=== PATIENT | female | born 1990 | race African-American/Black ===

== ENCOUNTER 2016-10-09 15:40 | Emergency (ER) | payer MEDICAID ==
[~2016-10-09] VITALS: Ht 177.8 cm; Wt 85.0 kg
[~2016-10-09 15:40] MED LIST: ASPI325T2 PO; GABA-531 PO; HYDR-523 PO; LEVO500T15 PO; Metoprolol Tartrate PO
[2016-10-09] MEDS ORDERED: KETOROLAC 30MG/ML VIAL IM ONE (16:30)
[2016-10-09 16:32] VITALS: BP 120/67
== END 2016-10-09 16:38 | disposition home or self-care (01) ==
LOC: ER 16:37
DX: H66.92 Otitis media, unspecified, left ear (principal)
CPT/HCPCS: 81025; 96372; 99283; J1885

== ENCOUNTER 2017-01-29 19:40 | Emergency (ER) | payer MEDICAID ==
[~2017-01-29] VITALS: Ht 177.8 cm; Wt 94.0 kg
[~2017-01-29 19:40] MED LIST changes: +ASPI-986 PO; -ASPI325T2 PO; -LEVO500T15 PO; +LEVO500T2 PO
[2017-01-29] MEDS ORDERED: KETOROLAC 30MG/ML VIAL IV STA (21:46)
[2017-01-29] MEDS ORDERED: METOCLOPRAMIDE HCL 10MG/2ML VIAL IV ONE (22:00)
[2017-01-29] MEDS ORDERED: SODIUM CHLORIDE 0.9% 1,000 ML IV ONE (23:27)
[2017-01-29] MEDS ORDERED: MAGNESIUM 2 G PREMIX 50 ML IV ONE (23:30)
[2017-01-30 00:10] VITALS: BP 131/90
== END 2017-01-30 00:10 | disposition home or self-care (01) ==
LOC: ER 21:52
DX: R51 Headache (principal); R07.89 Other chest pain; R10.9 Unspecified abdominal pain; R03.0 Elevated blood-pressure reading, without diagnosis of hypertension; Z18.89 Other specified retained foreign body fragments; Z87.828 Personal history of other (healed) physical injury and trauma; Z79.82 Long term (current) use of aspirin; Z79.899 Other long term (current) drug therapy
CPT/HCPCS: 71010; 81025; 93005; 96374; 96375; 99284; J1885; J2765; Z7610; J3475; J7030

== ENCOUNTER 2017-05-09 17:19 | Emergency (ER) | payer MEDICAID ==
[~2017-05-09] VITALS: Ht 177.8 cm; Wt 92.0 kg
[2017-05-09 17:52] VITALS: BP 139/75
== END 2017-05-09 20:58 | disposition home or self-care (01) ==
LOC: ER 18:31
DX: H92.02 Otalgia, left ear (principal); Z79.82 Long term (current) use of aspirin; Z98.890 Other specified postprocedural states
CPT/HCPCS: 81025; 99282

== ENCOUNTER 2017-06-27 11:58 | Emergency (ER) | payer MEDICAID ==
[~2017-06-27] VITALS: Ht 177.8 cm; Wt 99.0 kg
[2017-06-27 14:09] LABS: BASOPHILS % 0.5 % (0.0-2.0); EOSINOPHILS % 2.1 % (0.0-5.0); HEMATOCRIT. 41.1 % (36.0-48.0); HEMOGLOBIN. 13.4 g/dL (12.0-16.0); LYMPHOCYTES % 23.6 % (20.0-50.0); MEAN CORPUSCULAR HEMOGLOBIN 26.6 pg (28.0-32.0); MEAN CORPUSCULAR VOLUME 81.5 fL (81.0-99.0); MEAN PLATELET VOLUME 9.5 fl (7.4-10.4); MONOCYTES % 7.4 % (2.0-8.0); NEUTROPHILS % 66.4 % (40.0-76.0); PLATELET 226 x1000/uL (130-400); RED BLOOD CELL COUNT 5.05 mill/uL (4.2-5.4); RED CELL DISTRIBUTION WIDTH 15.6 % (11.6-14.6)
[2017-06-27 14:23] LABS: CHLORIDE 108 mEq/L (98-107)
[2017-06-27 14:46] LABS: CLARITY URINE TURBID (CLEAR); COLOR URINE YELLOW (YELLOW); KETONES URINE TRACE (NEGATIVE); LEUKOCYTE ESTERASE URINE 3+ (NEGATIVE); NITRITE URINE NEGATIVE (NEGATIVE); OCCULT BLOOD URINE 2+ (NEGATIVE); PH URINE 6.5 (4.5-8.0); PROTEIN URINE 2+ (NEGATIVE); SPECIFIC GRAVITY URINE 1.025 (1.005-1.030)
[2017-06-27 20:00] VITALS: BP 114/78
== END 2017-06-27 20:17 | disposition home or self-care (01) ==
LOC: ER 14:31
DX: N39.0 Urinary tract infection, site not specified (principal); Z79.82 Long term (current) use of aspirin
CPT/HCPCS: 36415; 80048; 81001; 81025; 87186; 99284

== ENCOUNTER 2018-02-13 10:04 | Emergency (ER) | payer MEDICAID ==
[~2018-02-13] VITALS: Ht 180.3 cm; Wt 93.0 kg
[2018-02-13] MEDS ORDERED: IBUPROFEN 800MG TABLET PO ONE (11:45)
[2018-02-13 12:38] LABS: BASOPHILS % 0.8 % (0.0-2.0); EOSINOPHILS % 1.8 % (0.0-5.0); HEMATOCRIT. 39.1 % (36.0-48.0); HEMOGLOBIN. 12.9 g/dL (12.0-16.0); LYMPHOCYTES % 21.2 % (20.0-50.0); MEAN CORPUSCULAR HEMOGLOBIN 27.4 pg (28.0-32.0); MEAN CORPUSCULAR VOLUME 83.4 fL (81.0-99.0); MEAN PLATELET VOLUME 10.2 fl (7.4-10.4); NEUTROPHILS % 70.2 % (40.0-76.0); PLATELET 228 x1000/uL (130-400); RED BLOOD CELL COUNT 4.69 mill/uL (4.2-5.4); RED CELL DISTRIBUTION WIDTH 15.1 % (11.6-14.6)
[2018-02-13 12:41] LABS: CHLORIDE 108 mEq/L (98-107)
[2018-02-13 13:09] LABS: HCG SCREEN NEGATIVE
[2018-02-13 14:01] LABS: CLARITY URINE CLOUDY (CLEAR); COLOR URINE YELLOW (YELLOW); KETONES URINE NEGATIVE (NEGATIVE); LEUKOCYTE ESTERASE URINE TRACE (NEGATIVE); NITRITE URINE NEGATIVE (NEGATIVE); OCCULT BLOOD URINE NEGATIVE (NEGATIVE); PROTEIN URINE NEGATIVE (NEGATIVE)
[2018-02-13 14:25] VITALS: BP 132/81
== END 2018-02-13 14:34 | disposition home or self-care (01) ==
LOC: ER 10:04
DX: M54.16 Radiculopathy, lumbar region (principal); N39.0 Urinary tract infection, site not specified
CPT/HCPCS: 36415; 74176; 80053; 81003; 81025; 83690; 84703; 85025; 99285

== ENCOUNTER 2019-04-12 07:15 | Emergency (ER) | payer MEDICAID ==
[~2019-04-12] VITALS: Ht 177.8 cm; Wt 97.0 kg
[2019-04-12] MEDS ORDERED: KETOROLAC 30MG/ML VIAL IV STA (07:59)
[2019-04-12 08:28] LABS: BASOPHILS % 0.6 % (0.0-2.0); EOSINOPHILS % 2.3 % (0.0-5.0); HEMATOCRIT. 36.6 % (36.0-48.0); HEMOGLOBIN. 12.1 g/dL (12.0-16.0); MEAN CORPUSCULAR HEMOGLOBIN 27.1 pg (28.0-32.0); MEAN CORPUSCULAR VOLUME 81.9 fL (81.0-99.0); MEAN PLATELET VOLUME 10.1 fl (7.4-10.4); MONOCYTES % 5.5 % (2.0-8.0); NEUTROPHILS % 69.6 % (40.0-76.0); PLATELET 227 x1000/uL (130-400); RED BLOOD CELL COUNT 4.47 mill/uL (4.2-5.4); RED CELL DISTRIBUTION WIDTH 15.4 % (11.6-14.6)
[2019-04-12 08:34] LABS: CHLORIDE 109 mEq/L (98-107)
[2019-04-12 08:37] LABS: CLARITY URINE CLOUDY (CLEAR); COLOR URINE YELLOW (YELLOW); KETONES URINE NEGATIVE (NEGATIVE); LEUKOCYTE ESTERASE URINE 1+ (NEGATIVE); NITRITE URINE NEGATIVE (NEGATIVE); OCCULT BLOOD URINE NEGATIVE (NEGATIVE); PH URINE 6.5 (4.5-8.0); PROTEIN URINE NEGATIVE (NEGATIVE); SPECIFIC GRAVITY URINE 1.017 (1.005-1.030)
[2019-04-12 09:00] LABS: UCG SCREEN NEGATIVE
[2019-04-12 10:14] LABS: HCG SCREEN NEGATIVE
[2019-04-12] MEDS ORDERED: IOHEXOL-350 100 ML BOTTLE ONE (10:44)
[2019-04-12 12:00] VITALS: BP 97/56
== END 2019-04-12 12:27 | disposition home or self-care (01) ==
LOC: ER 07:15
DX: R07.89 Other chest pain (principal); E11.9 Type 2 diabetes mellitus without complications; Z87.440 Personal history of urinary (tract) infections; Z87.828 Personal history of other (healed) physical injury and trauma
CPT/HCPCS: 36415; 71045; 71275; 80053; 81003; 81025; 83880; 84132; 84703; 85025; 85379; 93005; 99284; J1885; Q9967

== ENCOUNTER 2021-08-15 15:25 | Emergency (ER) | payer MEDICAID ==
[~2021-08-15] VITALS: Ht 177.8 cm; Wt 92.0 kg
[~2021-08-15 15:25] MED LIST changes: +ALBU6.7H9 INH; +AMOX-424 MT; -GABA-531 PO; +GABA-532 PO; +GUAI-741 MT
[2021-08-15 18:23] LABS: CLARITY URINE CLOUDY (CLEAR); COLOR URINE YELLOW (YELLOW); KETONES URINE TRACE (NEGATIVE); LEUKOCYTE ESTERASE URINE 1+ (NEGATIVE); NITRITE URINE NEGATIVE (NEGATIVE); OCCULT BLOOD URINE NEGATIVE (NEGATIVE); PROTEIN URINE TRACE (NEGATIVE); SPECIFIC GRAVITY URINE 1.026 (1.005-1.030)
[2021-08-15] MEDS ORDERED: KETOROLAC 60MG/2ML VIAL IM ONE (19:15)
[2021-08-15 20:02] VITALS: BP 154/85
[2021-08-15 20:51] LABS: BASOPHILS % 0.8 % (0.0-2.0); HEMATOCRIT. 41.3 % (36.0-48.0); LYMPHOCYTES % 24.1 % (20.0-50.0); MEAN CORPUSCULAR HEMOGLOBIN 27.3 pg (28.0-32.0); MEAN CORPUSCULAR VOLUME 80.8 fL (81.0-99.0); MEAN PLATELET VOLUME 9.6 fl (7.4-10.4); MONOCYTES % 7.4 % (2.0-8.0); NEUTROPHILS % 63.7 % (40.0-76.0); PLATELET 237 x1000/uL (130-400); RED BLOOD CELL COUNT 5.11 mill/uL (4.2-5.4)
[2021-08-15 20:53] LABS: CHLORIDE 110 mEq/L (98-107)
[2021-08-15 21:04] LABS: B-HCG QUANTITATIVE < 1 mIU/mL (<3)
[2021-08-15] MEDS ORDERED: CIPR-263 MT (21:26)
== END 2021-08-15 22:05 | disposition home or self-care (01) ==
LOC: ER 15:25
DX: N10 Acute pyelonephritis (principal); Z87.828 Personal history of other (healed) physical injury and trauma
CPT/HCPCS: 36415; 76770; 80053; 81003; 81025; 83690; 84702; 85025; 96372; 99284; J1885

== ENCOUNTER 2022-04-18 00:18 | Emergency (ER) | payer MEDICAID ==
[~2022-04-18] VITALS: Ht 177.8 cm; Wt 94.0 kg
[~2022-04-18 00:18] MED LIST changes: +ALBU6.7H3 INH; -ALBU6.7H9 INH; +CIPR-263 MT
[2022-04-18] MEDS ORDERED: CETI-106 MT (05:19)
[2022-04-18 05:45] VITALS: BP 119/67
== END 2022-04-18 05:50 | disposition home or self-care (01) ==
LOC: ER 00:18
DX: J06.9 Acute upper respiratory infection, unspecified (principal); Z98.890 Other specified postprocedural states
CPT/HCPCS: 71046; 99283

== ENCOUNTER 2022-05-07 10:16 | Inpatient (IN) | payer MEDICAID ==
[~2022-05-07] VITALS: Ht 177.8 cm; Wt 119.3 kg
[~2022-05-07 10:16] MED LIST changes: +CETI-106 MT
[2022-05-07] MEDS ORDERED: ACETAMINOPHEN 325MG TABLET PO STA ×2 (13:21)
[2022-05-07] MEDS ORDERED: VANCOMYCIN 1G PREMIX 200 ML IV ONE (13:30)
[2022-05-07] MEDS ORDERED: PIPERACILLIN/TAZ 3.375G PREMIX 50 ML IV ONE (13:30)
[2022-05-07 14:01] LABS: BASOPHILS % 0.4 % (0.0-2.0); HEMATOCRIT. 39.6 % (36.0-48.0); HEMOGLOBIN. 12.9 g/dL (12.0-16.0); LYMPHOCYTES % 12.8 % (20.0-50.0); MEAN CORPUSCULAR HEMOGLOBIN 26.6 pg (28.0-32.0); MEAN CORPUSCULAR VOLUME 81.6 fL (81.0-99.0); MEAN PLATELET VOLUME 10.2 fl (7.4-10.4); NEUTROPHILS % 72.8 % (40.0-76.0); PLATELET 252 x1000/uL (130-400); RED BLOOD CELL COUNT 4.86 mill/uL (4.2-5.4); RED CELL DISTRIBUTION WIDTH 16.1 % (11.6-14.6)
[2022-05-07 14:08] LABS: CHLORIDE 101 mEq/L (98-107); INR 1.2; PROTHROMBIN TIME 12.7 sec (9.6-11.0)
[2022-05-07 14:11] LABS: CLARITY URINE CLEAR (CLEAR); COLOR URINE YELLOW (YELLOW); KETONES URINE NEGATIVE (NEGATIVE); LEUKOCYTE ESTERASE URINE NEGATIVE (NEGATIVE); NITRITE URINE NEGATIVE (NEGATIVE); OCCULT BLOOD URINE NEGATIVE (NEGATIVE); PH URINE 5.5 (4.5-8.0); PROTEIN URINE NEGATIVE (NEGATIVE); SPECIFIC GRAVITY URINE 1.031 (1.005-1.030); UROBILINOGEN URINE 0.2 E.U./dL (0.2-1.0)
[2022-05-07 14:18] LABS: CREATINE KINASE 131 IU/L (26-192)
[2022-05-07 14:21] LABS: HCG SCREEN NEGATIVE
[2022-05-07] MEDS ORDERED: DIPHENHYDRAMINE 50MG/ML VIAL IV ONE (15:30)
[2022-05-07] MEDS ORDERED: METHYLPREDNISOLONE SOD SUCC 125 MG/2 ML VIAL IV ONE (15:30)
[2022-05-07] MEDS ORDERED: SODIUM CHLORIDE 0.9% 1000ML BAG (SEPSIS BOLUS) IV ONE (15:30)
[2022-05-07] MEDS ORDERED: ONDANSETRON HCL 4MG/2ML INJ IV ONE (15:30)
[2022-05-07] MEDS ORDERED: CLONIDINE 0.1MG TABLET PO PRN (16:45)
[2022-05-07] MEDS ORDERED: MAGNESIUM/ALUMINUM HYDROXIDE/SIMETHICONE 30ML UDC PO PRN (16:45)
[2022-05-07] MEDS ORDERED: DOCUSATE SODIUM 100MG CAPSULE PO PRN (16:45)
[2022-05-07] MEDS ORDERED: ONDANSETRON HCL 4MG/2ML INJ IV PRN (16:45)
[2022-05-07] MEDS ORDERED: ACETAMINOPHEN 325MG TABLET PO PRN (16:45)
[2022-05-07] MEDS ORDERED: ENOXAPARIN 40MG/0.4ML SYR SUBCUT SCH (18:00)
[2022-05-08 02:37] VITALS: BP 116/72
[2022-05-08 04:00] VITALS: BP 99/59
[2022-05-08 05:39] LABS: BASOPHILS % 0.1 % (0.0-2.0); HEMATOCRIT. 36.5 % (36.0-48.0); HEMOGLOBIN. 12.1 g/dL (12.0-16.0); LYMPHOCYTES % 11.6 % (20.0-50.0); MEAN CORPUSCULAR VOLUME 81.4 fL (81.0-99.0); NEUTROPHILS % 86.3 % (40.0-76.0); PLATELET 237 x1000/uL (130-400); RED BLOOD CELL COUNT 4.48 mill/uL (4.2-5.4)
[2022-05-08 06:51] LABS: CHLORIDE 102 mEq/L (98-107)
[2022-05-08] MEDS: PANTOPRAZOLE 40MG DR TABLET PO SCH ×2 (07:10→20:04)
[2022-05-08 07:13] LABS: HDL CHOLESTEROL 29 mg/dL (40-59); LDL CHOLESTEROL 41 mg/dL (5-100); T4 FREE 1.22 ng/dL (0.76-1.46)
[2022-05-08 08:00] VITALS: BP 100/55
[2022-05-08 12:00] VITALS: BP 138/88
[2022-05-08 12:05] LABS: *AMPHETAMINES SCREEN URINE NEGATIVE (NEGATIVE); *BARBITURATES SCREEN URINE NEGATIVE (NEGATIVE); *BENZODIAZEPINES SCREEN URINE NEGATIVE (NEGATIVE); *COCAINE SCREEN URINE NEGATIVE (NEGATIVE); CANNABINOID URINE SCREEN NEGATIVE (NEGATIVE); METHADONE URINE SCREEN NEGATIVE (NEGATIVE); PHENCYCLIDINE URINE SCREEN NEGATIVE (NEGATIVE)
[2022-05-08 12:14] LABS: OPIATES URINE SCREEN PRESUMTIVE POSITIVE (NEGATIVE)
[2022-05-08 16:00] VITALS: BP 137/84
[2022-05-08] MEDS: ENOXAPARIN 30MG/0.3ML SYR SUBCUT SCH (18:30)
[2022-05-08 20:00] VITALS: BP 113/68
[2022-05-08] MEDS: ACETAMINOPHEN 325MG TABLET PO PRN (20:04)
[2022-05-08] MEDS: GUAIFENESIN 200MG/10ML SUGAR FREE UDC PO PRN (20:04)
[2022-05-09] VITALS: BP_SYST 109; BP_SYST 119; BP_DIAS 60; BP_DIAS 65
[2022-05-09 03:37] VITALS: BP 98/58
[2022-05-09] MEDS: PANTOPRAZOLE 40MG DR TABLET PO SCH (07:10)
[2022-05-09 08:00] VITALS: BP 105/58
[2022-05-09] MEDS: ENOXAPARIN 30MG/0.3ML SYR SUBCUT SCH (09:00)
[2022-05-09] MEDS: GUAIFENESIN 200MG/10ML SUGAR FREE UDC PO PRN ×2 (10:41→15:16)
[2022-05-09] MEDS: ACETAMINOPHEN 325MG TABLET PO PRN ×2 (10:41→11:41)
[2022-05-09 12:00] VITALS: BP 125/68
[2022-05-09 16:00] VITALS: BP 104/68
[2022-05-09 17:51] VITALS: BP 105/68
[2022-05-09] MEDS ORDERED: AMOXICILLIN/POTASSIUM CLAVULANATE 500/125MG TAB PO SCH (18:00)
[2022-05-09] MEDS ORDERED: AMOX1TAB15 MT (18:01)
[2022-05-09] MEDS ORDERED: FAMOTIDINE 20MG TABLET PO SCH (21:00)
[2022-05-09] MEDS ORDERED: FLUTICASONE PROPIONATE 50MCG/SPRAY BOTTLE BOTHNSTRLS SCH (21:00)
== END 2022-05-09 19:10 | disposition home or self-care (01) | DRG 43 ==
LOC: ER 10:19 → 8WST 16:05 → EDBEDREQ 16:11 → EDBEDREQSVC 16:11 → EDBEDREQTM 16:11 → SUPCPDRO 19:38 → ENRESERV 05-08 00:45 → ER 05-08 01:33
PROVIDERS: ADMIT Internal Medicine; ATTEND Internal Medicine
DX: G37.3 Acute transverse myelitis in demyelinating disease of central nervous system (principal); R65.10 Systemic inflammatory response syndrome (SIRS) of non-infectious origin without acute organ dysfunction; E46 Unspecified protein-calorie malnutrition; E87.1 Hypo-osmolality and hyponatremia; M48.07 Spinal stenosis, lumbosacral region; E11.9 Type 2 diabetes mellitus without complications; E66.9 Obesity, unspecified; J32.9 Chronic sinusitis, unspecified; Z20.822 Contact with and (suspected) exposure to COVID-19; Z86.718 Personal history of other venous thrombosis and embolism; Z68.37 Body mass index [BMI] 37.0-37.9, adult
CPT/HCPCS: 36415; 70551; 71045; 72128; 72131; 72146; 72148; 80053; 80061; 80305; 81003; 82550; 83036; 83605; 84145; 84439; 84443; 84703; 85025; 87426; 87804; 93005; 93970; 97162; 99291; C9803; J1200; J1650; J2405; J2543; J2930; J3370; J7030

== ENCOUNTER 2023-08-13 08:40 | Emergency (ER) | payer MEDICAID ==
[~2023-08-13] VITALS: Ht 175.3 cm; Wt 104.0 kg
[~2023-08-13 08:40] MED LIST changes: -ALBU6.7H3 INH; -AMOX-424 MT; +AMOX1TAB15 MT; -ASPI-986 PO; -CETI-106 MT; -CIPR-263 MT; -GABA-532 PO; -GUAI-741 MT; -HYDR-523 PO; -LEVO500T2 PO; -Metoprolol Tartrate PO
[2023-08-13 08:46] VITALS: BP 107/80; PULSE 98; RESP 20; TEMP 98.2; O2SAT 100
== END 2023-08-13 12:02 | disposition home or self-care (01) ==
LOC: ER 08:40
DX: M25.512 Pain in left shoulder (principal); W18.30XA Fall on same level, unspecified, initial encounter; Y93.89 Activity, other specified; Y92.89 Other specified places as the place of occurrence of the external cause; Y99.8 Other external cause status
CPT/HCPCS: 71101; 81025; 99283

== ENCOUNTER 2024-11-03 18:14 | Emergency (ER) | payer MEDICAID ==
[~2024-11-03] VITALS: Ht 177.8 cm; Wt 127.0 kg
[2024-11-03 18:22] VITALS: TEMP 36.7; O2SAT 100
[2024-11-03 19:03] LABS: BASOPHILS % 0.7 % (0.0-2.0); EOSINOPHILS % 2.7 % (0.0-5.0); HEMATOCRIT. 42.1 % (36.0-48.0); HEMOGLOBIN. 13.3 g/dL (12.0-16.0); LYMPHOCYTES % 21.7 % (20.0-50.0); MEAN CORPUSCULAR HEMOGLOBIN 26.6 pg (28.0-32.0); MEAN CORPUSCULAR HGB CONC 31.7 g/dL (31.0-37.0); MEAN PLATELET VOLUME 9.7 fl (7.4-10.4); MONOCYTES % 5.5 % (2.0-8.0); NEUTROPHILS % 69.4 % (40.0-76.0); PLATELET 249 x1000/uL (130-400); RED BLOOD CELL COUNT 5.01 mill/uL (4.2-5.4); RED CELL DISTRIBUTION WIDTH 15.6 % (11.6-14.6); WHITE BLOOD COUNT 11.4 x1000/uL (4.5-11.0)
[2024-11-03 19:17] LABS: CHLORIDE 108 mEq/L (98-107); SODIUM 137 mEq/L (136-145)
[2024-11-03 19:18] LABS: CALCIUM 9.3 mg/dL (8.7-10.4); CARBON DIOXIDE 25 mEq/L (21-32)
[2024-11-03 19:23] LABS: CREATININE 0.8 mg/dL (0.6-1.0); GLUCOSE 108 mg/dL (70-105); UREA NITROGEN BLOOD 8 mg/dL (9-23)
[2024-11-03 19:28] LABS: B-HCG QUANTITATIVE 1 mIU/mL (<6)
[2024-11-03 20:22] VITALS: BP 136/76; PULSE 85; RESP 18; O2SAT 99
== END 2024-11-03 20:25 | disposition home or self-care (01) ==
LOC: ER 18:14
DX: O20.9 Hemorrhage in early pregnancy, unspecified (principal); N89.8 Other specified noninflammatory disorders of vagina; Z79.899 Other long term (current) drug therapy; Z98.890 Other specified postprocedural states; Z3A.01 Less than 8 weeks gestation of pregnancy
CPT/HCPCS: 36415; 76801; 80048; 84702; 85025; 86850; 86900; 99284

== ENCOUNTER 2025-02-17 16:38 | Emergency (ER) | payer MEDICAID ==
[~2025-02-17] VITALS: Ht 177.8 cm; Wt 119.0 kg
[2025-02-17 16:44] VITALS: BP 133/78; TEMP 36.9; O2SAT 99
[2025-02-17 17:02] VITALS: PULSE 81; RESP 18; O2SAT 100
[2025-02-17 17:19] LABS: BASOPHILS % 1.2 % (0.0-2.0); EOSINOPHILS % 3.0 % (0.0-5.0); HEMATOCRIT. 37.0 % (36.0-48.0); HEMOGLOBIN. 11.8 g/dL (12.0-16.0); LYMPHOCYTES % 23.5 % (20.0-50.0); MEAN PLATELET VOLUME 9.6 fl (7.4-10.4); MONOCYTES % 7.2 % (2.0-8.0); NEUTROPHILS % 65.1 % (40.0-76.0); PLATELET 254 x1000/uL (130-400); RED BLOOD CELL COUNT 4.50 mill/uL (4.2-5.4); RED CELL DISTRIBUTION WIDTH 15.4 % (11.6-14.6)
[2025-02-17 17:28] LABS: CREATININE 0.8 mg/dL (0.6-1.0); HCG SCREEN NEGATIVE; UREA NITROGEN BLOOD 9 mg/dL (9-23)
[2025-02-17 20:24] LABS: CLARITY URINE CLEAR (CLEAR); COLOR URINE YELLOW (YELLOW); GLUCOSE URINE NEGATIVE (NEGATIVE); KETONES URINE NEGATIVE (NEGATIVE); LEUKOCYTE ESTERASE URINE NEGATIVE (NEGATIVE); NITRITE URINE NEGATIVE (NEGATIVE); OCCULT BLOOD URINE NEGATIVE (NEGATIVE); PH URINE 7.0 (4.5-8.0); PROTEIN URINE NEGATIVE (NEGATIVE); SPECIFIC GRAVITY URINE 1.009 (1.005-1.030); UROBILINOGEN URINE 0.2 E.U./dL (0.2-1.0)
[2025-02-17 20:56] LABS: ASPARTATE AMINOTRANSFERASE 12 IU/L (<34); BILIRUBIN DIRECT < 0.1 mg/dL (<=3.0); BILIRUBIN TOTAL 0.3 mg/dL (0.1-1.0); PROTEIN TOTAL 7.9 g/dL (6.0-8.3)
== END 2025-02-17 21:28 | disposition home or self-care (01) ==
LOC: ER 16:38
DX: R10.84 Generalized abdominal pain (principal); Z98.890 Other specified postprocedural states
CPT/HCPCS: 36415; 74176; 76830; 76856; 80048; 80076; 81003; 81025; 84703; 85025; 99284